=== PATIENT | male | born 1990 | race Caucasian/White ===

== ENCOUNTER 2018-03-12 17:43 | Emergency (ER) | payer MEDICAID, OTHER ==
[~2018-03-12] VITALS: Ht 185.4 cm; Wt 83.0 kg
[2018-03-12] MEDS ORDERED: METHOCARBAMOL 750MG TABLET PO ONE (18:15)
[2018-03-12] MEDS ORDERED: PREDNISONE 20MG TABLET PO ONE (18:15)
[2018-03-12] MEDS ORDERED: KETOROLAC 60MG/2ML VIAL IM ONE (18:15)
[2018-03-12] MEDS ORDERED: HYDROCODONE/APAP 7.5/325MG 1 TAB TABLET PO ONE (19:45)
[2018-03-12] MEDS ORDERED: DIAZEPAM 5 MG TABLET PO ONE (21:30)
[2018-03-13 00:25] VITALS: BP 110/75
== END 2018-03-13 00:36 | disposition home or self-care (01) ==
LOC: ER 17:43
DX: S33.5XXA Sprain of ligaments of lumbar spine, initial encounter (principal); S39.012A Strain of muscle, fascia and tendon of lower back, initial encounter; F12.10 Cannabis abuse, uncomplicated; X58.XXXA Exposure to other specified factors, initial encounter; Y93.89 Activity, other specified; Y92.89 Other specified places as the place of occurrence of the external cause; Y99.8 Other external cause status
CPT/HCPCS: 72148; 96372; 99284; J1885; J7512; Z7610